=== PATIENT | female | born 1935 | race Native Hawaiian/Other Pacific Islander ===

== ENCOUNTER 2018-09-27 09:15 | Outpatient (CLI) | payer OTHER ==
[~2018-09-27 09:15] MED LIST: FOLI1TAB26 PO; FURO40TA93 PO; GABA300C2 PO; LAXATIVE10 MG RE; LEVO0.0723 PO; LEVOTHROID75 MCG PO; LOPRESSOR50 MG PO; MULTI VITAMN PO; OMEPRAZOLE40 MG PO; PROBIOTIC ACIDOPHILU PO; TYLENOL325 MG PO; VIT B-COMPLX100 MG PO; WARFARIN2.5 MG PO
== END 2018-09-27 09:19 | disposition short-term general hospital (02) ==
LOC: AMB 09:15
DX: S01.01XA Laceration without foreign body of scalp, initial encounter (principal); W18.39XA Other fall on same level, initial encounter; Y93.89 Activity, other specified; Y92.010 Kitchen of single-family (private) house as the place of occurrence of the external cause
CPT/HCPCS: A0425; A0429

== ENCOUNTER 2018-09-27 09:19 | Emergency (ER) | payer OTHER ==
[~2018-09-27] VITALS: Ht 167.6 cm; Wt 70.3 kg
[2018-09-27 09:19] VITALS: TEMP 97.5
[2018-09-27 10:56] LABS: PLATELET COUNT 274 K/uL (152-353)
[2018-09-27 11:06] LABS: POTASSIUM 4.1 mmol/L (3.6-5.2)
[2018-09-27 11:37] VITALS: BP 167/57
== END 2018-09-27 12:04 | disposition home or self-care (01) ==
LOC: ED 09:22
DX: S00.83XA Contusion of other part of head, initial encounter (principal); S01.01XA Laceration without foreign body of scalp, initial encounter; J32.3 Chronic sphenoidal sinusitis; W18.39XA Other fall on same level, initial encounter; Y92.090 Kitchen in other non-institutional residence as the place of occurrence of the external cause
CPT/HCPCS: 36415; 80053; 85027; 99283

== ENCOUNTER 2022-10-09 10:51 | Outpatient (CLI) | payer OTHER | END 2022-10-09 19:47 | disposition home or self-care (01) | LOC: CT 10:51 | PROVIDERS: ATTEND Internal Medicine | DX: R10.9 Unspecified abdominal pain (principal); R11.0 Nausea | CPT/HCPCS: Q9963 ==